=== PATIENT | male | born 1940 | race Caucasian/White ===

== ENCOUNTER 2017-01-07 12:26 | Observation (INO) | payer OTHER ==
[2017-01-07] MEDS ORDERED: DIAZEPAM 5 MG TAB PO ONE (12:33)
[2017-01-07] MEDS ORDERED: diphenhydrAMINE 25 MG CAP PO ONE (12:33)
[2017-01-07] MEDS ORDERED: NS 1,000 ML IV ONE (12:33)
[2017-01-07] MEDS ORDERED: BACITRACIN IRRIGATION/NS 50,000 UNITS/1,000 ML BTL IRR ONE (12:33)
[2017-01-07] MEDS ORDERED: ceFAZolin 2 GM/DEXTROSE 100 ML IV ONE (12:33)
--- NOTE | 2017-01-07 12:58 | CPEKG ---
Heart Rate: 97 RR Interval: 619 QRSD Interval: 80 QT Interval: 356 QTC Interval: 452 QRS [place]: 48 T Wave [place]: 54 EKG Severity - ABNORMAL ECG - EKG Impression: ATRIAL FIBRILLATION Electronically Signed By: Aiden Kent 07-Jan-2017 14:24:24
[2017-01-07] MEDS ORDERED: ceFAZolin 2 GM in D5W 100 ML IV ONE (13:00)
[2017-01-07 13:17] LABS: % IMMATURE GRANULYOCYTES 0.4 % (0.0-1.1); ABSOLUTE IMMATURE GRANULOCYTES 0.03 10^3/uL (0.00-0.10); ADD DIFF? NO; ADD MORPH? NO; ADD SCAN? NO; ATYPICAL LYMPHOCYTE FLAG 10 (0-99); FRAGMENT RBC FLAG 0 (0-99); HEMATOCRIT 41.8 % (40.0-51.0); HEMOGLOBIN 14.5 g/dL (13.7-17.5); LEFT SHIFT FLG 0 (0-99); LIPEMIA HEMOLYSIS FLAG 90 (0-99); MEAN CELL HEMOGLOBIN 33.6 pg (27.9-34.1); MEAN CELL HEMOGLOBIN CONCENTR. 34.7 g/dL (32.4-36.7); PLATELET CLUMPS FLAG 0 (0-99); PLATELET COUNT 192 10^3/uL (150-400); RED BLOOD CELL COUNT 4.31 10^6/uL (4.40-6.38); RED CELL DISTRIBUTION WIDTH 12.6 % (11.5-15.2)
[2017-01-07 13:32] LABS: INR 1.09 (0.83-1.16)
[2017-01-07 13:33] LABS: ANION GAP 8 mEq/L (8-16); CALCIUM 9.2 mg/dL (8.5-10.4); CARBON DIOXIDE 22 mEq/l (22-31); CHLORIDE 107 mEq/L (97-110); CREATININE 0.9 mg/dL (0.7-1.3); GLOMERULAR FILTRATION RATE > 60; GLUCOSE 80 mg/dL (70-100); POTASSIUM 4.4 mEq/L (3.5-5.2); SODIUM 137 mEq/L (134-144)
[2017-01-07] MEDS ORDERED: LIDOCAINE 1% 300 MG/30 ML SDV ONE (13:46)
[2017-01-07] MEDS ORDERED: BUPIVACAINE 0.5% 30 ML SDV ONE (13:47)
[2017-01-07] MEDS ORDERED: fentaNYL 100 MCG/2 ML INJ ONE (13:47)
[2017-01-07] MEDS ORDERED: MIDAZOLAM 2 MG/2 ML VIAL ONE (13:47)
[2017-01-07] MEDS ORDERED: LIDO/EPI 1% **for epidural** 30 ML SDV ONE (13:47)
[2017-01-07] MEDS ORDERED: IOPAMIDOL (ISOVUE-370) 150 ML BTL IV ONE (13:48)
--- NOTE | 2017-01-07 16:10 | EPPROC ---
Electrophysiology Procedure Note: PROCEDURE PERFORMED: 1. Implantation of an A/V Pacemaker 2. Subclavian vein angiography 3. Fluoroscopy INDICATION: Syncope LINQ with sinus pauses PROCEDURE NOTE: Patient presented to the cardiac catheterization laboratory in a fasting, post absorptive state . CCL RN administered sedation. The left infraclavicular area was prepped and draped in the usual sterile fashion. Lidocaine plus bupivacaine was used for local anesthesia. Left subclavian venography was performed by injection of iodinated contrast into the left antecubital vein. This was done to assure patency of the vein and also to assess for any anatomical aberrations. Using a combination of blunt and sharp dissection and electrocautery, the dissection was carried down to the prepectoral fascia. A pocket was made in this anatomical plane. All bleeding was controlled with electrocautery. The pocket was packed with gauze soaked in antibiotic solution. Fluoroscopy was utilized during the entire procedure for venous access and placement of the leads. Using a direct stick technique the left extrathoracic axillary vein was accessed with 2 sticks using the modified Seldinger technique. Placement of the guidewires into the venous system was confirmed by low-pressure blood return and also by visualizing the guidewires advancing into the inferior vena cava. A purse string suture was applied around the guidewires. Two #7 [place] sheaths were advanced under fluoroscopic guidance over the guidewire. An active fixation ventricular lead was advanced into the right ventricular apex and screwed in place. An active fixation atrial lead was advanced into the right atrial appendage and screwed in place. The peel away sheaths were removed. Pacing thresholds, sensing parameters and lead impedances were measured. There was no diaphragmatic stimulation at maximum output. The leads were sutured to the prepectoral fascia with 3 nonabsorbable sutures each. The pocket was again inspected for any bleeding. The leads were attached to the pacemaker securely. The pacemaker was inserted into the pocket and secured in place with a nonabsorbable suture. Fluoroscopy was performed in SING[place] and [place] planes to verify right-sided placement of the leads. Also fluoroscopy of the pacemaker pocket was performed. The pacemaker pocket was closed in 3 layers with absorbable monocryl sutures and diana. Appropriate dressing was applied. The patient left the cardiac catheterization laboratory in stable condition. Serial Numbers: 1. Device: [facility] Assurity MRI [id number] 2. Atrial Lead: SJM Tendril [id number] 45 SN [id number] 3. Ventricular Lead: SJM Tendril 8TC 58 SN [id number] Stimulation Thresholds & Impedance Measurements: 1. Atrial Lead F waves 2.4 mV, 468 ohm 2. Ventricular Lead R 9.4 mV 796 ohm, 0.5 V 0.5 ms Glenn Pacing Parameters 1. Pacing mode: DDDR 2. Lower rate: 60 ppm 3. Upper tracking rate: 120 ppm 4. Upper sensor rate: 120 ppm Patient Problems: Problems Problem Status Onset Bradycardia Acute Atrial fibrillation Acute
--- NOTE | 2017-01-07 16:13 | CPEKG ---
Heart Rate: 77 RR Interval: 779 QRSD Interval: 94 QT Interval: 404 QTC Interval: 458 QRS [place]: 41 T Wave [place]: 44 EKG Severity - ABNORMAL ECG - EKG Impression: AFIB/FLUT AND V-PACED COMPLEXES Electronically Signed By: Aiden Kent 08-Jan-2017 07:46:38
[2017-01-07] MEDS: METOPROLOL TARTRATE 25 MG TAB PO SCH (20:48)
[2017-01-07] MEDS ORDERED: TAMSULOSIN HCL 0.4 MG CAP PO SCH (21:00)
[2017-01-07] MEDS ORDERED: ATORVASTATIN CALCIUM 10 MG TAB PO SCH (21:00)
[2017-01-08] MEDS: HYDROCODONE/APAP 5/325 TAB PO PRN ×2 (00:36→10:11)
[2017-01-08 04:31] LABS: % IMMATURE GRANULYOCYTES 0.1 % (0.0-1.1); ABSOLUTE IMMATURE GRANULOCYTES 0.01 10^3/uL (0.00-0.10); ADD DIFF? NO; ADD MORPH? NO; ADD SCAN? NO; ATYPICAL LYMPHOCYTE FLAG 0 (0-99); FRAGMENT RBC FLAG 0 (0-99); HEMATOCRIT 36.8 % (40.0-51.0); HEMOGLOBIN 12.8 g/dL (13.7-17.5); LEFT SHIFT FLG 10 (0-99); LIPEMIA HEMOLYSIS FLAG 90 (0-99); MEAN CELL HEMOGLOBIN 33.6 pg (27.9-34.1); MEAN CELL HEMOGLOBIN CONCENTR. 34.8 g/dL (32.4-36.7); MEAN CELL VOLUME 96.6 fL (81.5-99.8); MEAN PLATELET VOLUME 10.4 fL (8.7-11.7); PLATELET CLUMPS FLAG 0 (0-99); PLATELET COUNT 170 10^3/uL (150-400); RED BLOOD CELL COUNT 3.81 10^6/uL (4.40-6.38); RED CELL DISTRIBUTION WIDTH 12.8 % (11.5-15.2)
[2017-01-08 04:57] LABS: ANION GAP 10 mEq/L (8-16); CALCIUM 8.5 mg/dL (8.5-10.4); CARBON DIOXIDE 20 mEq/l (22-31); CHLORIDE 108 mEq/L (97-110); CREATININE 0.8 mg/dL (0.7-1.3); GLOMERULAR FILTRATION RATE > 60; GLUCOSE 81 mg/dL (70-100); POTASSIUM 4.4 mEq/L (3.5-5.2); SODIUM 138 mEq/L (134-144)
[2017-01-08 07:44] VITALS: RESP 20; TEMP 97.6; O2SAT 95
[2017-01-08] MEDS ORDERED: CHOLECALCIFEROL VIT D3 1,000 UNITS TAB PO SCH (09:00)
--- NOTE | 2017-01-08 09:01 | CPEKG ---
Heart Rate: 60 RR Interval: 1000 P-R Interval: 196 QRSD Interval: 88 QT Interval: 424 QTC Interval: 424 QRS [place]: 58 T Wave [place]: 35 EKG Severity - ABNORMAL ECG - EKG Impression: ATRIAL-PACED RHYTHM Electronically Signed By: Aiden Kent 08-Jan-2017 09:42:18
[2017-01-08] MEDS: METOPROLOL TARTRATE 25 MG TAB PO SCH (09:27)
[2017-01-08 09:28] VITALS: BP 139/89; PULSE 63
[2017-01-08] MEDS ORDERED: APIXABAN 5 MG TAB PO SCH (10:00)
--- NOTE | 2017-01-09 04:24 | GDS ---
[f rep st] DISCHARGE SUMMARY ADMITTING DIAGNOSES: 1. Syncope. 2. Paroxysmal atrial fibrillation. 3. Pause and nonconductive P wave. DISCHARGE DIAGNOSES: 1. Syncope. 2. Pauses. 3. Paroxysmal atrial fibrillation. 4. Dual-chamber pacemaker implant. BRIEF HISTORY: This is a 76-year-old man with a history of PAF and syncope. He had a Linq implanted for evaluation of syncope. Two-second sinus pause as well as nonconductive P waves were noted on monitor with associated dizzy episodes. HOSPITAL COURSE: Dr. Brock implanted a [employer] MRI-compatible dual-chamber pacemaker. His Linq monitor was removed at the time also. He did well overnight without any bleeding. He did have some discomfort and has taken [place] 2 times. His pacemaker was interrogated this morning and demonstrated normal function, mode in DDDR, with a base rate of 60 beats per minute. Atrial fibrillation suppression is turned on, with a max pacing rate of 80 beats per minute. Right atrial threshold was 0.5 volts at 0.5 milliseconds, and P wave was 3.1 millivolts. Right ventricular capture threshold was 0.37 volts at 0.5 milliseconds and R waves were 11.4 millivolts. A chest x-ray demonstrated no pneumothorax. LABORATORY WORK: WBC is 7.37, hemoglobin 12.8, hematocrit 36.8, platelets 170. Sodium is 138, potassium 4.4, chloride 108, bicarbonate 20, BUN 19, creatinine is 0.8, glucose is 81. PHYSICAL EXAMINATION: VITAL SIGNS: Blood pressure is 95/50, pulse is 61, respirations 20, temperature is 36.4, O2 saturation on room air is 95%. GENERAL : He is alert and oriented, lying on bed. CARDIAC: Regular rate and rhythm, without a murmur, rub, or gallop. Lungs are cleat to auscultation bilaterally. Extremities are warm. No discoloration. No lower extremity edema. Pacemaker site with gauze dressing and Tegaderm intact, and no significant swelling and no bleeding. Linq monitor removal site is dry and intact. DISCHARGE MEDICATIONS: Please see discharge medication reconciliation. Of note , Eliquis was restarted prior to his discharge this morning, and he was also given 5 tablets of [place] at his request for discomfort at the pacemaker site to help him sleep at night. FOLLOWUP: He has a followup for a pacemaker check on January 14 at 1 o'clock and to follow up with Dr. Brock on January 30 at 9:45 a.m. /[id number]/MODL MTDD
== END 2017-01-08 11:36 | disposition home or self-care (01) ==
LOC: FCATH 12:26 → F2W 14:52
PROVIDERS: ADMIT Internal Medicine Cardiovascular Disease; ATTEND Internal Medicine Cardiovascular Disease
PROC: 02HK3JZ Insertion of Pacemaker Lead into Right Ventricle, Percutaneous Approach (ICD-10-PCS; principal; 2017-01-07)
PROC: 02H63JZ Insertion of Pacemaker Lead into Right Atrium, Percutaneous Approach (ICD-10-PCS; principal; 2017-01-07)
PROC: 0JH606Z Insertion of Pacemaker, Dual Chamber into Chest Subcutaneous Tissue and Fascia, Open Approach (ICD-10-PCS; principal; 2017-01-07)
DX: R55 Syncope and collapse (principal); I48.0 Paroxysmal atrial fibrillation; I49.8 Other specified cardiac arrhythmias; Z79.01 Long term (current) use of anticoagulants
CPT/HCPCS: 33208; 71010; 71020; 93005; C1785; C1898; G0378; J0690; J2250; J3010; Q9967

== ENCOUNTER → 2017-10-01 | Outpatient (CLI) | payer OTHER | LOC: CIMAGING 12:22 | PROVIDERS: ATTEND Physician Assistant Medical | DX: M17.11 Unilateral primary osteoarthritis, right knee (principal); I70.0 Atherosclerosis of aorta | CPT/HCPCS: 73562-PO ==

== ENCOUNTER → 2017-11-13 | Outpatient (CLI) | payer OTHER | LOC: CIMAGING 11:43 | PROVIDERS: ATTEND Physician Assistant Medical | DX: M48.54XD Collapsed vertebra, not elsewhere classified, thoracic region, subsequent encounter for fracture with routine healing (principal); M51.34 Other intervertebral disc degeneration, thoracic region; Z95.0 Presence of cardiac pacemaker ==